=== PATIENT | female | born 2000 | race Caucasian/White ===

== ENCOUNTER → 2021-07-23 | Outpatient (REF) | payer OTHER | LOC: M WUC 17:36 | PROVIDERS: ATTEND Physician Assistant | DX: N39.0 Urinary tract infection, site not specified (principal) ==

== ENCOUNTER 2021-12-28 01:03 | Emergency (ER) | payer OTHER ==
[~2021-12-28] VITALS: Ht 167.6 cm; Wt 59.3 kg
[2021-12-28 05:28] VITALS: BP 133/80
== END 2021-12-28 06:14 | disposition left against medical advice (07) ==
LOC: M ED 01:03
DX: Z53.21 Procedure and treatment not carried out due to patient leaving prior to being seen by health care provider (principal)

== ENCOUNTER → 2022-11-06 | Outpatient (REF) | payer OTHER | LOC: M LAB REF 08:41 | PROVIDERS: ATTEND Physician Assistant | DX: R30.0 Dysuria (principal) ==